=== PATIENT | female | born 1965 | race Caucasian/White ===

== ENCOUNTER 2016-11-10 11:22 | Inpatient (IN) | payer OTHER ==
[~2016-11-10] VITALS: Ht 165.1 cm; Wt 141.4 kg
[2016-11-10] MEDS ORDERED: CLON1TAB3 PO (11:49)
[2016-11-10] MEDS ORDERED: PRLSR20 PO (11:49)
[2016-11-10] MEDS ORDERED: LEVO175T3 PO (11:49)
[2016-11-10] MEDS ORDERED: CARB1CAP9 PO (11:49)
[2016-11-10] MEDS ORDERED: CALC1CHW PO (11:49)
[2016-11-10] MEDS ORDERED: MULTTAB58 PO (11:49)
[2016-11-10 12:16] LABS: BASO % 0.5 %; BASO ABS # 0.03 K/uL (0-0.2); COMPLETE YES; IG% 0.2 %; LYMPH % 18.8 %; LYMPH ABS # 1.24 K/uL (1.2-3.4); MEAN CELL VOLUME 88.5 fL (80-100); MEAN CORPUSCULAR HEMOGLOBIN 30.2 pg (25-34); MEAN CORPUSCULAR HGB CONC 34.1 g/dl (32-36); MONO % 5.2 %; NEUT % 72.3 %; PLATELET COUNT 205 K/uL (130-400); RED BLOOD COUNT 4.97 M/uL (4.2-5.4)
--- NOTE | 2016-11-10 12:19 | EMERGENCY ROOM VISIT NOTE ---
History Report prepared by Bert: Kathleen Coe Under the Supervision of: Dr. Nan Sheikh M.D. First contact with patient: 11:37 Chief Complaint: HEAD INJURY (MINOR) Stated Complaint: HEAD INJURY History of Present Illness The patient is a 51 year old female who presents to the Emergency Room with complaints of a head injury that occurred this morning. The patient was following up with Dr. Ji today for a routine visit. She was sitting in a chair and leaned over to tie her shoes when she fell to the side and hit her head on the ground. Per EMS, the patient was acting baseline prior to her appointment but started to act slightly unlike herself afterwards according to nursing staff at the office. Currently, the patient has a mild headache. The patient has a history of seizures and is on Carbatrol. She notes that she has been exercising for the past few months to lose weight. She has lost about 7 pounds in the past 2 months. She notes some bruising to her abdomen and back from the compression band she is using on her exercise bike. She notes that her blood pressure was running high today at 178/83. She denies any medication changes recently. Denies fevers or other complaints. Source of History: patient Onset: this morning Position: head Quality: other (head injury) Timing: other (episode) Associated Symptoms: + headache, No fevers Review of Systems See HPI for pertinent positives & negatives. A total of 10 systems reviewed and were otherwise negative. Past Medical & Surgical Medical Problems: (1) Post concussion syndrome (2) Seizures Family History No pertinent family history stated. Social History Smoking Status: Never Smoker Marital Status: single Occupation Status: student Current/Historical Medications Scheduled Calcium Carbonate-Vitamin D (Caltrate 600+D), 1 TAB PO BID Carbamazepine (Carbatrol Er), 300 MG PO 5XD Clonazepam (Klonopin), 1 MG PO HS Levothyroxine Sodium (Levothyroxine Sodium), 1 TAB PO DAILY Multiple Vitamin (Multivitamin), 1 TAB PO DAILY Omeprazole (Prilosec), 20 MG PO DAILY Allergies Coded Allergies: BEE STING (Verified Allergy, Unknown, per [employer], 11/10/16) Gabapentin (Unverified Allergy, Unknown, per [employer], 11/10/16) Oxycodone (Verified Allergy, Unknown, per [employer]scripts, 11/10/16) Penicillins (Verified Allergy, Unknown, Hives, 11/10/16) Topiramate (Verified Adverse Reaction, Intermediate, numbness in face, ) Furosemide (Unverified Adverse Reaction, Mild, DIZZINESS, 11/10/16) Physical Exam Vital Signs Date Time Temp Pulse Resp B/P Pulse Ox O2 Delivery O2 Flow Rate FiO2 11/10/16 17:12 96 15 11/10/16 17:07 86 21 98 11/10/16 17:02 91 19 98 11/10/16 16:57 86 14 96 11/10/16 16:52 79 13 95 11/10/16 16:47 81 16 98 11/10/16 16:42 84 22 98 11/10/16 16:37 83 16 98 11/10/16 16:32 85 18 96 11/10/16 16:27 85 14 97 11/10/16 16:22 91 15 98 11/10/16 15:52 83 15 97 11/10/16 15:22 78 15 99 11/10/16 15:14 82 20 160/70 98 Room Air 11/10/16 15:14 160/70 11/10/16 14:52 80 15 11/10/16 14:35 157/97 11/10/16 14:22 82 13 11/10/16 13:52 81 14 11/10/16 13:22 78 16 98 11/10/16 13:01 82 20 157/99 98 Room Air 11/10/16 13:01 157/99 11/10/16 12:52 85 16 95 11/10/16 12:22 81 24 98 11/10/16 12:21 81 18 165/76 100 Room Air 11/10/16 12:16 165/76 11/10/16 12:16 84 16 165/76 98 Room Air 11/10/16 11:53 144/89 11/10/16 11:30 36.7 95 20 187/112 99 Room Air 11/10/16 11:26 187/112 Physical Exam Vital signs reviewed. General: Generally well-appearing 51 year old female, in no significant distress. HEENT: No scleral icterus, PERRLA, neck supple. Atraumatic. Cardiovascular: Regular rate and rhythm, no extra sounds. Pulmonary: Clear to auscultation bilaterally, normal work of breathing. Abdomen: Obese, soft, nontender, nondistended, positive bowel sounds, 7 cm healing ecchymotic area to the upper abdomen. Musculoskeletal: Ecchymotic area to the lumbar back, no peripheral edema. Neurologic: Patient awake alert and oriented x 3, somewhat bizarre affect, neurologically intact, speech is somewhat disjointed but she articulates well and answers questions appropriately, full strength in all 4 extremities. Cranial nerves 2 through 12 grossly intact. Skin: Warm, dry, no rash Medical Decision & Procedures ER Provider Diagnostic Interpretation: Radiology results as stated below per my review and radiologist interpretation: HEAD CT NONCONTRAST CT DOSE: 614.27 mGy.cm HISTORY: Altered mental status. Head injury. TECHNIQUE: Multiaxial CT images of the head were performed without the use of intravenous contrast. Automated exposure control was utilized for this study. Comparison: None. Findings: The paranasal sinuses and mastoid air cells are clear. The calvarium and skull base are intact. The ventricles and sulci are within normal limits. There is no mass, hematoma, midline shift, or acute infarct. Mild left parietal scalp swelling. Impression: No acute intracranial abnormality. Mild left parietal scalp swelling Electronically signed by: Evan Stark M.D. 11/10/2016 12:20 PM Dictated Date/Time: 11/10/2016 12:15 PM Laboratory Results 11/10/16 12:00 Red Blood Count 4.97, Mean Corpuscular Volume 88.5, Mean Corpuscular Hemoglobin 30.2, Mean Corpuscular Hemoglobin Concent 34.1, Mean Platelet Volume 10.0, Neutrophils (%) (Auto) 72.3, Lymphocytes (%) (Auto) 18.8, Monocytes (%) (Auto) 5.2, Eosinophils (%) (Auto) 3.0, Basophils (%) (Auto) 0.5, Neutrophils # (Auto) 4.78, Lymphocytes # (Auto) 1.24, Monocytes # (Auto) 0.34, Eosinophils # (Auto) 0.20, Basophils # (Auto) 0.03 11/10/16 12:00 Test 11/10/16 12:00 11/10/16 12:08 11/10/16 13:05 White Blood Count 6.60 K/uL (4.8-10.8) Red Blood Count 4.97 M/uL (4.2-5.4) Hemoglobin 15.0 g/dL (12.0-16.0) Hematocrit 44.0 % (37-47) Mean Corpuscular Volume 88.5 fL (80-100) Mean Corpuscular Hemoglobin 30.2 pg (25-34) Mean Corpuscular Hemoglobin Concent 34.1 g/dl (32-36) Platelet Count 205 K/uL (130-400) Mean Platelet Volume 10.0 fL (7.4-10.4) Neutrophils (%) (Auto) 72.3 % Lymphocytes (%) (Auto) 18.8 % Monocytes (%) (Auto) 5.2 % Eosinophils (%) (Auto) 3.0 % Basophils (%) (Auto) 0.5 % Neutrophils # (Auto) 4.78 K/uL (1.4-6.5) Lymphocytes # (Auto) 1.24 K/uL (1.2-3.4) Monocytes # (Auto) 0.34 K/uL (0.11-0.59) Eosinophils # (Auto) 0.20 K/uL (0-0.5) Basophils # (Auto) 0.03 K/uL (0-0.2) RDW Standard Deviation 44.1 fL (36.4-46.3) RDW Coefficient of Variation 13.6 % (11.5-14.5) Immature Granulocyte % (Auto) 0.2 % Immature Granulocyte # (Auto) 0.01 K/uL (0.00-0.02) Est Creatinine Clear Calc Drug Dose 125.6 ml/min Estimated GFR () 103.6 Estimated GFR (Non- 89.4 BUN/Creatinine Ratio 18.6 (10-20) Calcium Level 8.9 mg/dl (8.5-10.1) Magnesium Level 2.0 mg/dl (1.8-2.4) Total Bilirubin 0.3 mg/dl (0.2-1) Direct Bilirubin 0.1 mg/dl (0-0.2) Aspartate Amino Transf (AST/SGOT) 16 U/L (15-37) Alanine Aminotransferase (ALT/SGPT) 33 U/L (12-78) Alkaline Phosphatase 90 U/L (45-117) Total Protein 8.2 gm/dl (6.4-8.2) Albumin 3.8 gm/dl (3.4-5.0) Carbamazepine (Tegretol) Level 9.4 mcg/ml (4-12) Bedside Hemoglobin 16.3 g/dl (12.0-16.0) Bedside Hematocrit 48 % (37-47) Bedside Sodium 142 mEq/L (135-144) Bedside Potassium 3.7 mEq/L (3.3-5.0) Bedside Chloride 105 mEq/L (101-112) Bedside Total CO2 21 mEq/l (24-31) Anion Gap 21.0 mmol/L (16-25) Bedside Blood Urea Nitrogen 15 mg/dl (7-18) Bedside Creatinine 0.6 mg/dl (0.6-1.3) Bedside Glucose (other) 124 mg/dl (70-99) Bedside Ionized Calcium (Joaquin) 1.16 mmol/l (1.12-1.32) Urine Color YELLOW Urine Appearance CLEAR (CLEAR) Urine pH 6.0 (4.5-7.5) Urine Specific [place] 1.010 (1.000-1.030) Urine Protein NEG (NEG) Urine Glucose (UA) NEG (NEG) Urine Ketones NEG (NEG) Urine Occult Blood NEG (NEG) Urine Nitrite NEG (NEG) Urine Bilirubin NEG (NEG) Urine Urobilinogen NEG (NEG) Urine Leukocyte Esterase TRACE (NEG) Urine WBC (Auto) 1-5 /hpf (0-5) Urine RBC (Auto) 0-4 /hpf (0-4) Urine Hyaline Casts (Auto) 1-5 /lpf (0-5) Urine Epithelial Cells (Auto) 10-20 /lpf (0-5) Urine Bacteria (Auto) NEG (NEG) Laboratory results per my review. ECG Indication: altered mental status Rate (beats per minute): 88 Rhythm: normal sinus Findings: prolonged QT, no ectopy ED Course 1145: The patient was evaluated in room B5. A complete history and physical examination was performed. 1536: Upon reevaluation, the patient is resting comfortably. I discussed laboratory and radiographic results with the patient. She verbalized agreement of the treatment plan. 1539: I discussed the case with Dr. Ji - Bariatric Medicine. She said that the patient has a bizarre affect at baseline. She said that the patient bent over while she was at the office and dramatically fell, stood up, took a few large steps, fell again, and hit her head. Afterwards, she was out of it. 1631: I discussed the case with Dr. Jassi TRACY Hospitalist. The patient will be evaluated for further management. Medical Decision Differential: Intracranial hemorrhage, intracranial mass, migraine headache, tension headache , sinusitis, meningitis This patient was evaluated and appeared to be in no significant distress. Physical examination reveals is generally well-appearing obese female. She has no focal neurologic deficit although has some difficulty recalling the events in the physician's office prior to arrival. She has some irregularity in the speech patterns. I did have a conversation with Dr. Ji who was in the clinic at the time of the patient's accident. She states the patient had a change in mental status right away. She had been behaving normally prior to the incident. The patient is anxious to be discharged however I do not feel is in her best interest as she lives at home alone. CT scan of the head was performed and is negative. The patient will be evaluated by the hospitalist service for further management and neurologic checks. Patient is aware of the plan and agrees. Consults Time Called: 1530 Consulting Physician: Dr. Ji - Bariatric Medicine Returned Call: 1539 I discussed the case with her. She said that the patient has a bizarre affect at baseline. She said that the patient bent over while she was at the office and dramatically fell, stood up, took a few large steps, fell again, and hit her head. Afterwards, she was out of it. Additional Consults: Time Called: 1600 Consulted Physician: Dr. Jassi TRACY Hospitalist Returned Call: 1631 Additional Comments: I discussed the case with him. The patient will be evaluated for further management. Impression Primary Impression: Closed head injury Additional Impression: Altered level of consciousness Scribe Attestation The scribe's documentation has been prepared under my direction and personally reviewed by me in its entirety. I confirm that the note above accurately reflects all work, treatment, procedures, and medical decision making performed by me. Departure Information Dispostion Being Evaluated By Hospitalist Referrals No Doctor, Assigned (PCP) Patient Instructions My [facility] Problem Qualifiers Primary Impression: Closed head injury Encounter type: initial encounter Qualified Codes: S09.90XA - Unspecified injury of head, initial encounter
[2016-11-10 12:21] LABS: ISTAT CREATININE 0.6 mg/dl (0.6-1.3); ISTAT HEMOGLOBIN 16.3 g/dl (12.0-16.0); ISTAT IONIZED CALCIUM 1.16 mmol/l (1.12-1.32)
[2016-11-10 12:34] LABS: BUN/CREATININE RATIO 18.6 (10-20); CALCIUM 8.9 mg/dl (8.5-10.1); CREATININE 0.77 mg/dl (0.60-1.20); POTASSIUM 3.7 mmol/L (3.5-5.1)
[2016-11-10 13:24] LABS: URINE APPEARANCE CLEAR (CLEAR); URINE BILIRUBIN NEG (NEG); URINE COLOR YELLOW; URINE NITRITE NEG (NEG); UROBILINOGEN NEG (NEG); ZZUR CULT IF INDIC CLEAN CATCH NO
[2016-11-10 13:25] LABS: MANUAL MICROSCOPIC REQUIRED? NO; REVIEW REQ? NO
[2016-11-10] MEDS ORDERED: ACETAMINOPHEN 325 MG TAB PO PRN (17:15)
[2016-11-10] MEDS ORDERED: ONDANSETRON INJ 2 MG/ML 2 ML VIAL IV PRN (17:15)
[2016-11-10] MEDS ORDERED: CARBAMAZEPINE 300 MG PO SCH (17:30)
[2016-11-10 18:38] VITALS: BP 177/116; PULSE 95; TEMP 36.3; O2SAT 97; Ht 165.1 cm; Wt 141.4 kg
--- NOTE | 2016-11-10 18:45 | History and Physical ---
History & Physical Date & Time of Service: Nov 10, 2016 at 18:36 Chief Complaint: Post Concussion Syndrome Primary Care Physician: No Doctor, Assigned History of Present Illness Source: patient Pt is a 51 year old female with hx of seizure disorder who presents to the ER with complaints of a head injury that occurred this morning. Pt was seeing Dr Ji for a routine visit when she leaned over to tie her shoes and sustained a fall. No LOC noted but according to staff, pt was not acting herself. Pt denies any head pain, chest pain, or shortness of breath prior to incident. The patient has a history of seizures and is on Carbatrol. She notes that she has been exercising for the past few months to lose weight. She has lost about 7 pounds in the past 2 months. She notes some bruising to her abdomen and back from the compression band she is using on her exercise bike. Upon evaluation pt denies and headaches, blurred vision, chest pain, shortness of breath, palpitations or any seizure activity. Past Medical/Surgical History Medical Problems: (1) Seizures Status: Chronic Social History Smoking Status: Never Smoker Smokeless Tobacco Use: No Marital Status: single Occupational Status: student Allergies Coded Allergies: BEE STING (Verified Allergy, Unknown, per [employer]scripts, 11/10/16) Gabapentin (Unverified Allergy, Unknown, per [employer]scripts, 11/10/16) Oxycodone (Verified Allergy, Unknown, per [employer]scripts, 11/10/16) Penicillins (Verified Allergy, Unknown, Hives, 11/10/16) Topiramate (Verified Adverse Reaction, Intermediate, numbness in face, ) Furosemide (Unverified Adverse Reaction, Mild, DIZZINESS, 11/10/16) Home Medications Scheduled Calcium Carbonate-Vitamin D (Caltrate 600+D), 1 TAB PO BID Carbamazepine (Carbatrol Er), 300 MG PO 5XD Clonazepam (Klonopin), 1 MG PO HS Levothyroxine Sodium (Levothyroxine Sodium), 1 TAB PO DAILY Multiple Vitamin (Multivitamin), 1 TAB PO DAILY Omeprazole (Prilosec), 20 MG PO DAILY Review of Systems Constitutional: No chills, No fever Respiratory: No cough, No sputum Cardiovascular: No chest pain, No orthopnea Abdomen: No constipation, No diarrhea, No nausea, No pain, No vomiting Musculoskeletal: No joint pain, No muscle pain Genitourinary - Female: No dysuria, No urinary frequency, No urinary urgency Neurologic: No memory loss, No paralysis, No weakness Physical Exam Vital Signs Date Time Temp Pulse Resp B/P Pulse Ox O2 Delivery O2 Flow Rate FiO2 11/10/16 18:05 36.7 95 14 160/70 98 11/10/16 18:02 14 11/10/16 17:57 95 17 11/10/16 17:52 96 18 11/10/16 17:47 105 20 11/10/16 17:42 104 17 11/10/16 17:37 109 20 11/10/16 17:32 106 24 11/10/16 17:27 108 21 11/10/16 17:22 105 17 11/10/16 17:17 98 19 11/10/16 17:12 96 15 11/10/16 17:07 86 21 98 11/10/16 17:02 91 19 98 11/10/16 16:57 86 14 96 11/10/16 16:52 79 13 95 11/10/16 16:47 81 16 98 11/10/16 16:42 84 22 98 11/10/16 16:37 83 16 98 11/10/16 16:32 85 18 96 11/10/16 16:27 85 14 97 11/10/16 16:22 91 15 98 11/10/16 15:52 83 15 97 11/10/16 15:22 78 15 99 11/10/16 15:14 82 20 160/70 98 Room Air 11/10/16 15:14 160/70 11/10/16 14:52 80 15 11/10/16 14:35 157/97 11/10/16 14:22 82 13 11/10/16 13:52 81 14 11/10/16 13:22 78 16 98 11/10/16 13:01 82 20 157/99 98 Room Air 11/10/16 13:01 157/99 11/10/16 12:52 85 16 95 11/10/16 12:22 81 24 98 11/10/16 12:21 81 18 165/76 100 Room Air 11/10/16 12:16 165/76 11/10/16 12:16 84 16 165/76 98 Room Air 3/23/17 11:53 144/89 11/10/16 11:30 36.7 95 20 187/112 99 Room Air 11/10/16 11:26 187/112 General Appearance: WD/WN, no apparent distress Neck: supple, no adenopathy Respiratory/Chest: lungs clear, normal breath sounds Cardiovascular: no edema, no gallop Abdomen/GI: non tender, soft Neurologic/Psych: alert, normal mood/affect, oriented x 3 Diagnostics Laboratory Results Results Past 24 Hours Test 11/10/16 12:00 11/10/16 12:08 11/10/16 13:05 Range/Units White Blood Count 6.60 4.8-10.8 K/uL Red Blood Count 4.97 4.2-5.4 M/uL Hemoglobin 15.0 12.0-16.0 g/dL Hematocrit 44.0 37-47 % Mean Corpuscular Volume 88.5 80-100 fL Mean Corpuscular Hemoglobin 30.2 25-34 pg Mean Corpuscular Hemoglobin Concent 34.1 32-36 g/dl Platelet Count 205 130-400 K/uL Mean Platelet Volume 10.0 7.4-10.4 fL Neutrophils (%) (Auto) 72.3 % Lymphocytes (%) (Auto) 18.8 % Monocytes (%) (Auto) 5.2 % Eosinophils (%) (Auto) 3.0 % Basophils (%) (Auto) 0.5 % Neutrophils # (Auto) 4.78 1.4-6.5 K/uL Lymphocytes # (Auto) 1.24 1.2-3.4 K/uL Monocytes # (Auto) 0.34 0.11-0.59 K/uL Eosinophils # (Auto) 0.20 0-0.5 K/uL Basophils # (Auto) 0.03 0-0.2 K/uL RDW Standard Deviation 44.1 36.4-46.3 fL RDW Coefficient of Variation 13.6 11.5-14.5 % Immature Granulocyte % (Auto) 0.2 % Immature Granulocyte # (Auto) 0.01 0.00-0.02 K/uL Sodium Level 141 136-145 mmol/L Potassium Level 3.7 3.5-5.1 mmol/L Chloride Level 108 98-107 mmol/L Carbon Dioxide Level 23 21-32 mmol/L Anion Gap 10.0 21.0 16-25 mmol/L Blood Urea Nitrogen 14 7-18 mg/dl Creatinine 0.77 0.60-1.20 mg/dl Est Creatinine Clear Calc Drug Dose 125.6 ml/min Estimated GFR () 103.6 Estimated GFR (Non- 89.4 BUN/Creatinine Ratio 18.6 10-20 Random Glucose 117 70-99 mg/dl Calcium Level 8.9 8.5-10.1 mg/dl Magnesium Level 2.0 1.8-2.4 mg/dl Total Bilirubin 0.3 0.2-1 mg/dl Direct Bilirubin 0.1 0-0.2 mg/dl Aspartate Amino Transf (AST/SGOT) 16 15-37 U/L Alanine Aminotransferase (ALT/SGPT) 33 12-78 U/L Alkaline Phosphatase 90 45-117 U/L Total Protein 8.2 6.4-8.2 gm/dl Albumin 3.8 3.4-5.0 gm/dl Carbamazepine (Tegretol) Level 9.4 4-12 mcg/ml Bedside Hemoglobin 16.3 12.0-16.0 g/dl Bedside Hematocrit 48 37-47 % Bedside Sodium 142 135-144 mEq/L Bedside Potassium 3.7 3.3-5.0 mEq/L Bedside Chloride 105 101-112 mEq/L Bedside Total CO2 21 24-31 mEq/l Bedside Blood Urea Nitrogen 15 7-18 mg/dl Bedside Creatinine 0.6 0.6-1.3 mg/dl Bedside Glucose (other) 124 70-99 mg/dl Bedside Ionized Calcium (Joaquin) 1.16 1.12-1.32 mmol/l Urine Color YELLOW Urine Appearance CLEAR CLEAR Urine pH 6.0 4.5-7.5 Urine Specific [place] 1.010 1.000-1.030 Urine Protein NEG NEG Urine Glucose (UA) NEG NEG Urine Ketones NEG NEG Urine Occult Blood NEG NEG Urine Nitrite NEG NEG Urine Bilirubin NEG NEG Urine Urobilinogen NEG NEG Urine Leukocyte Esterase TRACE NEG Urine WBC (Auto) 1-5 0-5 /hpf Urine RBC (Auto) 0-4 0-4 /hpf Urine Hyaline Casts (Auto) 1-5 0-5 /lpf Urine Epithelial Cells (Auto) 10-20 0-5 /lpf Urine Bacteria (Auto) NEG NEG Impression Assessment and Plan Pt is a 51 yo female with hx of seizure disorder who presents with fall and postconcussive syndrome afterwards Post concussive syndrome - Will place on observation, pt already back to baseline. Denies any headaches, blurred vision. Will likely DC in next 24 hrs. Obtain PT/OT Seizure disorder - Cont carbamazepine. Level WNL Hypothyroidism - Cont synthroid Anxiety - Cont klonopin Pt is FULL CODE VTE Prophylaxis VTE Risk Assessment Done? Y/N: Yes Risk Level: Moderate
[2016-11-10 19:24] VITALS: BP_SYST 195; BP_DIAS 89; BP_DIAS 98; PULSE 100; TEMP 37; O2SAT 99
[2016-11-10] MEDS ORDERED: IV FLUIDS COMPLETED PRN (19:30)
[2016-11-10] MEDS: HydrALAZINE HCL 20 MG/ML VIAL IV. PRN ×2 (19:37→23:35)
[2016-11-10 20:00] VITALS: O2SAT 99
[2016-11-10] MEDS: CLONAZEPAM 1 MG TAB PO SCH (20:19)
[2016-11-10] MEDS: CARBATROL PO SCH (21:05)
[2016-11-10 23:29] VITALS: BP 156/100; PULSE 91; TEMP 37; O2SAT 99
[2016-11-10 23:33] VITALS: BP 171/90
[2016-11-10 23:59] VITALS: O2SAT 99
[2016-11-11] VITALS (7 sets, daily range): BP systolic 130–158; BP diastolic 80–96; PULSE 83–99; TEMP 36.6–37.4; O2SAT 95–99
[2016-11-11] MEDS: CARBATROL PO SCH ×5 (05:39→23:15)
[2016-11-11] MEDS: LEVOTHYROXINE 175 MCG TAB PO SCH (05:39)
[2016-11-11] MEDS: MULTIVITAMIN TAB PO SCH (10:56)
[2016-11-11] MEDS: PANTOprazole SOD 40 MG TAB PO SCH (10:56)
--- NOTE | 2016-11-11 18:19 | Progress Note ---
Subjective Date of Service: Nov 11, 2016. Subjective Pt evaluation today including: conversation w/ patient, physical exam, chart review, lab review, review of studies (CT head), review of inpatient medication list Pain: denies PO Intake: normal Voiding: no voiding problems telemetry stable overnight patient adamant about discharging home today, stating she has cats and she needs to tend to them she personally feels she is back to neuropsychiatric baseline however, multiple nurses, PT, etc report mild confusion during the encounter she initially told me that it was she did, however, knew it was October 2016 she could not recall the events of yesterday she reports having taken aspirin yesterday morning when I asked her why she took aspirin she could not remember she then stated "for my back" she had extreme difficulty in telling me the months of the year backwards it took several trials and several minutes to accomplish such she denies any recent seizure; last seizure was May 2016 she states that no one at the physician's office yesterday witnessed seizure activity Problem List Medical Problems: (1) Altered level of consciousness Status: Acute (2) Closed head injury Status: Acute Review of Systems Constitutional: No fever Respiratory: No cough, No dyspnea on exertion, No shortness of breath Cardiac: No chest pain Abdomen: No pain Neurologic: + balance problems (uses cane), + memory loss, No numbness/tingling , No vertigo, No weakness Objective Vital Signs Date Time Temp Pulse Resp B/P Pulse Ox O2 Delivery O2 Flow Rate FiO2 11/11/16 16:00 Room Air 11/11/16 15:37 36.6 92 22 130/96 97 Room Air 11/11/16 12:00 Room Air 11/11/16 11:29 36.8 92 16 152/90 97 Room Air 11/11/16 08:00 Room Air 11/11/16 08:00 Room Air 11/11/16 07:30 36.8 94 18 158/85 96 Room Air 11/11/16 04:24 36.8 99 17 156/80 95 Room Air 11/11/16 04:00 99 Room Air 11/10/16 23:59 99 Room Air 11/10/16 23:33 171/90 11/10/16 23:29 37.0 91 22 156/100 99 Room Air 11/10/16 20:00 99 Room Air 11/10/16 19:24 37.0 100 16 195/89 99 Room Air 195/98 11/10/16 18:38 36.3 95 20 177/116 97 Room Air Physical Exam General Appearance: no apparent distress, + obese ENT: pharynx normal Neck: no JVD Respiratory/Chest: lungs clear, no respiratory distress, no accessory muscle use Cardiovascular: regular rate, rhythm, no gallop, no murmur Abdomen: normal bowel sounds, non tender, soft, no organomegaly Extremities: no pedal edema Neurologic/Psychiatric: alert, + disoriented (knew all orientation questions except for day of the week), + pertinent finding (finger/nose/finger maneuever without ataxia; gait assessed - fair, uses cane, no ataxia; strength 5/5 x 4 extremities; DTRs 2+ b/l upper and lower extremities. Speech - clear, but at times nonfluent. ) Laboratory Results Last 24 Hours Test 11/10/16 19:15 11/11/16 12:16 Thyroid Stimulating Hormone (TSH) 1.060 uIu/ml Hepatitis C Antibody Screen NEG Vitamin B12 Level 763 pg/mL Assessment and Plan 51yo female with: 1. fall at local physician's office yesterday, s/p head injury - she still has some element of mild confusion/cognitive impairment today. this may simply represent a post-concussive state. she is currently working on a Master's degree and clearly she is not at her neurocognitive baseline. I am concerned that something provoked yesterday's event - stroke, etc. Will attempt to get MRI brain today. Leave on telemetry. Check b12 level to be complete. I don't see any evidence of infectious process. Regardless of the etiology I do not feel she is safe to d/c this evening as she lives alone in [place] and has no family locally. Also, she has few friends to assist her if needed. Will involve social work to assist with her disposition. 2. seizure disorder - tegretol level was therapeutic. She has had no apparent seizure in the last 24 hours. 3. hypothyroidism - TSH is compensated. Cont synthroid same dose. 4. DVT proph - lovenox. if mentation is at or near baseline in AM then d/c home at that time with close outpatient follow-up. Continued [facility] stay due to: other (ongoing cognitive issues)
--- NOTE | 2016-11-11 18:20 | Progress Note ---
Progress Note Date of Service Nov 11, 2016. Progress Note 1820 Patient unable to complete MRI brain due to claustrophobia. We offered to repeat the MRI with pre-medication but patient refused. Consider repeat head CT in am if still with confusion, cognitive issues, etc. Malick JUNIOR MD
[2016-11-11] MEDS ORDERED: ENOXAPARIN 40 MG/0.4 ML SYR SQ ONE (18:30)
[2016-11-11 19:45] LABS: PROTHROMBIN TIME (PATIENT) 11.2 SECONDS (9.0-12.0)
[2016-11-11] MEDS: CLONAZEPAM 1 MG TAB PO SCH (20:43)
[2016-11-12 04:00] VITALS: BP 141/92; PULSE 84; TEMP 36.6; O2SAT 96
[2016-11-12] MEDS: LEVOTHYROXINE 175 MCG TAB PO SCH (06:35)
[2016-11-12] MEDS: CARBATROL PO SCH ×5 (06:35→23:41)
[2016-11-12] MEDS: MULTIVITAMIN TAB PO SCH (08:11)
[2016-11-12] MEDS: ENOXAPARIN 40 MG/0.4 ML SYR SQ SCH (08:11)
[2016-11-12] MEDS: PANTOprazole SOD 40 MG TAB PO SCH (08:11)
[2016-11-12 08:22] VITALS: BP 123/78; PULSE 71; TEMP 36.9; O2SAT 97
[2016-11-12 11:47] VITALS: BP 172/65; PULSE 80; TEMP 36.8; O2SAT 98
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
[2016-11-12 15:28] VITALS: BP 150/93; PULSE 105; TEMP 36.9; O2SAT 97
--- NOTE | 2016-11-12 18:28 | EEG Procedure Note ---
EEG Procedure Note Date of Service Nov 12, 2016. Start / End Times Start Time: 1:35 PM End Time: 1:55 PM Referring Physician Joaquin History Seizure disorder, encephalopathy Home Medication List Scheduled Calcium Carbonate-Vitamin D (Caltrate 600+D), 1 TAB PO BID Carbamazepine (Carbatrol Er), 300 MG PO 5XD Clonazepam (Klonopin), 1 MG PO HS Levothyroxine Sodium (Levothyroxine Sodium), 1 TAB PO DAILY Multiple Vitamin (Multivitamin), 1 TAB PO DAILY Omeprazole (Prilosec), 20 MG PO DAILY Inpatient Medication List Current Inpatient Medications Medications (Trade) Dose Ordered Sig/Adrienne Route Start Time Stop Time Status Last Admin Dose Admin Acetaminophen (Tylenol Tab) 650 mg Q4H PRN PO 11/10/16 17:15 12/10/16 17:14 Ondansetron HCl (Zofran Inj) 4 mg Q6H PRN IV 11/10/16 17:15 12/10/16 17:14 Clonazepam (Klonopin Tab) 1 mg HS PO 11/10/16 21:00 12/10/16 20:59 11/11/16 20:43 1 MG Levothyroxine Sodium (Synthroid Tab) 175 mcg DAILYBB PO 11/11/16 06:00 12/11/16 05:59 11/12/16 06:35 175 MCG Multivitamins (Multivitamin Tab) 1 tab DAILY PO 11/11/16 09:00 12/11/16 08:59 11/12/16 08:11 1 TAB Pantoprazole Sodium (Protonix Tab) 40 mg QAM PO 11/11/16 09:00 12/11/16 08:59 11/12/16 08:11 40 MG Hydralazine HCl (HydrALAZINE INJ) 10 mg Q4 PRN IV. 11/10/16 18:45 12/10/16 18:44 11/10/16 23:35 10 MG Miscellaneous (Iv Fluids Completed) 1 ea PRN PRN N/A 11/10/16 19:30 11/10/17 19:29 Carbamazepine (Carbatrol Extended-Release) 300 mg 5XDQ4H PO 11/10/16 23:00 12/10/16 22:59 11/12/16 14:50 300 MG Enoxaparin Sodium (Lovenox Inj) 40 mg QAM SQ 11/12/16 09:00 12/12/16 08:59 11/12/16 08:11 40 MG Description This is a 21 electrode EEG with a single channel dedicated to limited EKG. The electrodes were placed in accordance with the International 10-20 system. There is a posterior dominant rhythm of 9-10 Hz which is symmetrically distributed and attenuates with eye opening there is a normal anterior to posterior organization. Photic stimulation is unremarkable. Hyperventilation is not performed. There is an intermittent, symmetrically distributed, frontal spike wave abnormality of moderate amplitude with a frequency of about 3-1/2 Hz. Interpretation This EEG reveals a symmetrical, frontal, spike wave abnormality that is potentially consistent with an underlying primary generalized seizure disorder. Clinical Correlation As above, this abnormal EEG is consistent with an underlying primary generalized epilepsy which is consistent with this patient's stated history of seizure disorder. Focal onset or localization-related epilepsy is not completely excluded, however. The observed abnormalities occur on a background of an otherwise normal alpha rhythm. The findings are not suggestive of subclinical status epilepticus.
[2016-11-12 19:43] VITALS: BP 175/76; PULSE 90; TEMP 37.1; O2SAT 97
[2016-11-12] MEDS: CLONAZEPAM 1 MG TAB PO SCH (20:01)
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
[2016-11-13] VITALS: BP 153/77; PULSE 92; TEMP 36.6; O2SAT 97
[2016-11-13 04:00] VITALS: BP 132/69; PULSE 83; TEMP 36.8; O2SAT 95
[2016-11-13] MEDS: LEVOTHYROXINE 175 MCG TAB PO SCH (06:16)
[2016-11-13] MEDS: CARBATROL PO SCH ×5 (06:16→23:17)
[2016-11-13 07:38] VITALS: BP 139/69; PULSE 78; TEMP 36.6; O2SAT 96
[2016-11-13] MEDS: MULTIVITAMIN TAB PO SCH (09:34)
[2016-11-13] MEDS: ENOXAPARIN 40 MG/0.4 ML SYR SQ SCH (09:34)
[2016-11-13] MEDS: PANTOprazole SOD 40 MG TAB PO SCH (09:34)
--- NOTE | 2016-11-13 11:02 | Neurology Progress Notes ---
Neurology Progress Note Date of Service Nov 13, 2016. Subjective Follow-up for confusion following head injury The patient continues to complain of mild difficulty with her memory and concentration ever since her fall and associated concussion which occurred 3 days ago. She does believe, however, that her symptoms have modestly improved compared with yesterday. She denies headache. She denies neck pain. She does complain of feeling dehydrated and attributes some of her symptoms to this issue. She has been eating and drinking adequately and does not complain of nausea or vomiting. I interpreted her bedside electroencephalogram was completed yesterday. There is evidence of an intermittent, symmetrical, frontal spike wave abnormality consistent with an underlying primary generalized epilepsy. The study did not suggest status epilepticus. Upon further review of outpatient records, it appears as if she had a similar finding on EEG is completed in the past. Also of note, she has not tolerated trials of other anticonvulsants including Depakote, phenytoin, and possibly Lamictal. He does not really have a good recollection of the Lamictal trial, however. She has been taking carbamazepine for many years and appears to have a therapeutic carbamazepine level, 9.4, that was drawn 3 days ago. She has a normal sodium level and normal white blood cell count as well. Objective Date Time Temp Pulse Resp B/P Pulse Ox O2 Delivery O2 Flow Rate FiO2 11/13/16 08:00 Room Air 11/13/16 07:38 36.6 78 18 139/69 96 Room Air 11/13/16 04:00 36.8 83 22 132/69 95 Room Air 11/13/16 04:00 Room Air 11/13/16 00:02 Room Air 11/13/16 00:00 36.6 92 22 153/77 97 Room Air 11/12/16 20:00 Room Air 11/12/16 19:43 37.1 90 18 175/76 97 Room Air 11/12/16 16:00 Room Air 11/12/16 15:28 36.9 105 18 150/93 97 Room Air 11/12/16 12:00 Room Air 11/12/16 11:47 36.8 80 18 172/65 98 Room Air Exam: The patient is lying comfortably in bed. She is in no acute distress, pleasant, cooperative, nonagitated. She is alert and oriented to person place and time and exhibits normal attention and concentration although had mild difficulty with serial sevens. She indicates that she was never really very good at math, however. She has mild difficulty with delayed recall, 2 out of 3 objects. She exhibits a normal spontaneous speech pattern and a normal vocabulary. She seems less irritable compared with yesterday. Her speech seems a bit less pressured as well. Visual viera full to confrontation. Visual acuity normal. Pupils equal round reactive to light and accommodation. Eye movements normal. No nystagmus. There is no facial droop. Palate elevates to midline. Tongue protrudes to midline. Shoulder shrug and hearing intact bilaterally. There is no pronator drift with outstretched arms. No tremor or dysmetria with finger to nose or heel to [place]. No ataxia or myoclonic type movements. Current Inpatient Medications Medications (Trade) Dose Ordered Sig/Adrienne Route Start Time Stop Time Status Last Admin Dose Admin Acetaminophen (Tylenol Tab) 650 mg Q4H PRN PO 11/10/16 17:15 12/10/16 17:14 Ondansetron HCl (Zofran Inj) 4 mg Q6H PRN IV 11/10/16 17:15 12/10/16 17:14 Clonazepam (Klonopin Tab) 1 mg HS PO 11/10/16 21:00 12/10/16 20:59 11/12/16 20:01 1 MG Levothyroxine Sodium (Synthroid Tab) 175 mcg DAILYBB PO 11/11/16 06:00 12/11/16 05:59 11/13/16 06:16 175 MCG Multivitamins (Multivitamin Tab) 1 tab DAILY PO 11/11/16 09:00 12/11/16 08:59 11/13/16 09:34 1 TAB Pantoprazole Sodium (Protonix Tab) 40 mg QAM PO 11/11/16 09:00 12/11/16 08:59 11/13/16 09:34 40 MG Hydralazine HCl (HydrALAZINE INJ) 10 mg Q4 PRN IV. 11/10/16 18:45 12/10/16 18:44 11/10/16 23:35 10 MG Miscellaneous (Iv Fluids Completed) 1 ea PRN PRN N/A 11/10/16 19:30 11/10/17 19:29 Carbamazepine (Carbatrol Extended-Release) 300 mg 5XDQ4H PO 11/10/16 23:00 12/10/16 22:59 11/13/16 06:16 300 MG Enoxaparin Sodium (Lovenox Inj) 40 mg QAM SQ 11/12/16 09:00 12/12/16 08:59 11/13/16 09:34 40 MG Impression Postconcussive cognitive dysfunction which continues to improve. I am unable to completely exclude a prolonged postictal state as another explanation for her cognitive dysfunction. However, obvious convulsive activity was not observed the time of her head injury. 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 Intolerances to trials of several other anticonvulsants in the past are noted. Carbamazepine seems to be well tolerated and is probably effective for her. Plan As this patient continues to improve, I would not make any changes in her anticonvulsant regimen or treatment at this time. If she were to have further episodes that could be potentially consistent with breakthrough seizures I think it would be reasonable to consider adding an adjunctive anticonvulsant to her regimen or possibly switching from carbamazepine to an alternative medication. This patient should continue to follow with Dr. Zapata as she has been seeing him for many years. I have no further recommendations at this time.
[2016-11-13 11:30] VITALS: BP 173/87; PULSE 75; O2SAT 96
--- NOTE | 2016-11-13 14:33 | Progress Note ---
Subjective Date of Service: Nov 13, 2016. Subjective Pt evaluation today including: conversation w/ patient, physical exam, chart review, lab review, review of studies, review of inpatient medication list Pain: No pain reported Voiding: no voiding problems, no incontinence pt is seen and examined , denies cp, sob, dizziness and Loc. No seizure reported by pt and no acute event overnight. Problem List Medical Problems: (1) Altered level of consciousness Status: Acute (2) Closed head injury Status: Acute Review of Systems All Other Systems: Reviewed and Negative Objective Vital Signs Date Time Temp Pulse Resp B/P Pulse Ox O2 Delivery O2 Flow Rate FiO2 11/13/16 11:30 75 20 173/87 96 Room Air 11/13/16 08:00 Room Air 11/13/16 07:38 36.6 78 18 139/69 96 Room Air 11/13/16 04:00 36.8 83 22 132/69 95 Room Air 11/13/16 04:00 Room Air 11/13/16 00:02 Room Air 11/13/16 00:00 36.6 92 22 153/77 97 Room Air 11/12/16 20:00 Room Air 11/12/16 19:43 37.1 90 18 175/76 97 Room Air 11/12/16 16:00 Room Air 11/12/16 15:28 36.9 105 18 150/93 97 Room Air Physical Exam General Appearance: WD/WN, no apparent distress Neck: supple, no adenopathy, no JVD Respiratory/Chest: chest non-tender, no respiratory distress, no accessory muscle use, + wheezing ( improved) Cardiovascular: regular rate, rhythm, no edema, no JVD, no murmur Abdomen: normal bowel sounds, non tender, soft, no organomegaly Extremities: normal range of motion, normal inspection 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 Fall at local physician's office yesterday, s/p head injury - may may post concussion some cognitive impairment. - Mild cognitive impairment today. - May simply represent a post-concussive state. Neurology on case. - Unable to do MRI secondary to claustrophobia .- Pt is AAox3, cognition improved - EEG is unremarkable, will d/c tomorrow as per neurology recommendation. 2. Seizure disorder - Tegretol level was therapeutic. - no apparent seizure in the last 48 hours. 3. Hypothyroidism - Cont Synthroid same dose. 4. DVT proph - lovenox. Continued [facility] stay due to: other (ongoing cognitive issues) Discharge planning: home
[2016-11-13 15:08] VITALS: BP 144/84; PULSE 90; TEMP 36.7; O2SAT 99
[2016-11-13] MEDS: CLONAZEPAM 1 MG TAB PO SCH (21:00)
[2016-11-13 23:57] VITALS: BP 138/84; PULSE 83; TEMP 36.6; O2SAT 95
[2016-11-14] VITALS: O2SAT 95
[2016-11-14] MEDS: LEVOTHYROXINE 175 MCG TAB PO SCH (06:31)
[2016-11-14] MEDS: CARBATROL PO SCH ×2 (06:32→11:03)
[2016-11-14 07:00] LABS: HEMATOCRIT 41.5 % (37-47); MEAN CELL VOLUME 90.2 fL (80-100); MEAN CORPUSCULAR HGB CONC 33.3 g/dl (32-36); MEAN PLATELET VOLUME 9.9 fL (7.4-10.4); PLATELET COUNT 189 K/uL (130-400); WHITE BLOOD COUNT 7.42 K/uL (4.8-10.8)
[2016-11-14 07:14] VITALS: BP 135/81; PULSE 74; TEMP 36.4; O2SAT 96
[2016-11-14 07:43] LABS: CREATININE 0.67 mg/dl (0.60-1.20)
--- NOTE | 2016-11-14 07:57 | Neurology Progress Notes ---
Neurology Progress Note Date of Service Nov 14, 2016. Subjective Patient feels she is back to baseline today. She has no headache and feels she is thinking more or less normally. She is unsure why she hit her head but was leaning over to do something with her shoes and ended up falling over and hitting her head on the floor 11-10-16. She is not dizzy or lightheaded and has no speech problems. She has no new weakness or numbness in the limbs. Nursing reports no seizure activity since admission and no issues overnight last night. Objective Date Time Temp Pulse Resp B/P Pulse Ox O2 Delivery O2 Flow Rate FiO2 11/14/16 07:14 36.4 74 20 135/81 96 Room Air 11/14/16 00:00 95 Room Air 11/13/16 23:57 36.6 83 20 138/84 95 Room Air 11/13/16 20:00 Room Air 11/13/16 16:00 Room Air 11/13/16 15:08 36.7 90 20 144/84 99 Room Air 11/13/16 11:30 75 20 173/87 96 Room Air 11/13/16 08:00 Room Air Last 24 Hours Test 11/14/16 06:46 White Blood Count 7.42 K/uL Red Blood Count 4.60 M/uL Hemoglobin 13.8 g/dL Hematocrit 41.5 % Mean Corpuscular Volume 90.2 fL Mean Corpuscular Hemoglobin 30.0 pg Mean Corpuscular Hemoglobin Concent 33.3 g/dl RDW Standard Deviation 46.0 fL RDW Coefficient of Variation 14.0 % Platelet Count 189 K/uL Mean Platelet Volume 9.9 fL Creatinine 0.67 mg/dl Est Creatinine Clear Calc Drug Dose 142.3 ml/min Estimated GFR () 118.0 Estimated GFR (Non- 101.8 Exam: Patient is awake and alert. Her speech is without aphasia or dysarthria. She can repeat test phrases well. She is oriented to time place and person. She can do simple calculations and knows left from right. Extraocular eye muscles are intact without nystagmus. There is no facial droop. Tongue is midline. With outstretched arms there is no drift. There is no resting, postural, or action tremors bilaterally. Strength is 5/5 diffusely in all limbs. Gait and stance are normal Current Inpatient Medications Medications (Trade) Dose Ordered Sig/Adrienne Route Start Time Stop Time Status Last Admin Dose Admin Acetaminophen (Tylenol Tab) 650 mg Q4H PRN PO 11/10/16 17:15 12/10/16 17:14 Ondansetron HCl (Zofran Inj) 4 mg Q6H PRN IV 11/10/16 17:15 12/10/16 17:14 Clonazepam (Klonopin Tab) 1 mg HS PO 11/10/16 21:00 12/10/16 20:59 11/13/16 21:00 1 MG Levothyroxine Sodium (Synthroid Tab) 175 mcg DAILYBB PO 11/11/16 06:00 12/11/16 05:59 11/14/16 06:31 175 MCG Multivitamins (Multivitamin Tab) 1 tab DAILY PO 11/11/16 09:00 12/11/16 08:59 11/13/16 09:34 1 TAB Pantoprazole Sodium (Protonix Tab) 40 mg QAM PO 11/11/16 09:00 12/11/16 08:59 11/13/16 09:34 40 MG Hydralazine HCl (HydrALAZINE INJ) 10 mg Q4 PRN IV. 11/10/16 18:45 12/10/16 18:44 11/10/16 23:35 10 MG Miscellaneous (Iv Fluids Completed) 1 ea PRN PRN N/A 11/10/16 19:30 11/10/17 19:29 Carbamazepine (Carbatrol Extended-Release) 300 mg 5XDQ4H PO 11/10/16 23:00 12/10/16 22:59 11/14/16 06:32 300 MG Enoxaparin Sodium (Lovenox Inj) 40 mg QAM SQ 11/12/16 09:00 12/12/16 08:59 11/13/16 09:34 40 MG Impression 1. Episode November 10 where she lost her balance and hit her head creating a concussion with headache and cognitive issues. These have seemingly cleared and she is active her baseline. I've known this patient for many years and she seems back to baseline to me. She has no post concussive complaints currently. 2. Epilepsy Patient has a long-standing history of epilepsy fairly well controlled on carbamazepine. Over the years, she has had occasional breakthrough seizures. She tends to be compliant with her medication and her level on admission was 9.4. EEG showed some frontal spike activity. CT scan of the head was unremarkable. 3. Anxiety disorder This is stable. 4. Obesity, chronic She is exercising to try to lose weight and is considering a surgical procedure for weight loss. She had some low back bruising using her exercise bike last week. 5. Hypertension Plan 1. Keep carbamazepine at its current dose. 2. After consideration, I see no need to add any additional anticonvulsant medications (although I may consider Vimpat in future) seems 3. Defer treatment of hypertension to hospitalist and primary care physician. The patient is concerned that she is going to be discharged without an antihypertensive. No further specific neurologic recommendations to make at this time. I will follow this patient as an outpatient in 2-3 weeks.
[2016-11-14] MEDS: PANTOprazole SOD 40 MG TAB PO SCH (08:03)
[2016-11-14] MEDS: MULTIVITAMIN TAB PO SCH (08:03)
[2016-11-14] MEDS: ENOXAPARIN 40 MG/0.4 ML SYR SQ SCH (08:04)
[2016-11-14] MEDS ORDERED: NURSING VERBAL MED ORDER ONE (09:00)
[2016-11-14] MEDS ORDERED: AMLODIPINE BESYLATE 5 MG TAB PO ONE (09:30)
[2016-11-14] MEDS ORDERED: AMLO-114 PO (10:22)
--- NOTE | 2016-11-14 10:36 | Discharge Instructions ---
Discharge Instructions Date of Service Nov 14, 2016. Admission Reason for Admission: Post Concussion Syndrome Discharge Discharge Diagnosis / Problem: Pots concussive syndrome Discharge Goals Goal(s): Decrease discomfort, Improve function, Increase independence, Improve disease control, Diagnostic testing, Therapeutic intervention Activity Recommendations Activity Limitations: resume your previous activity Lifting Limitations: none Shower/Bathe: no limitations . Instructions / Follow-Up Instructions / Follow-Up Patient to be discharged home No limitations in activity Prescribed norvasc 10 mg PO daily, sent to pharmacy If worsening headaches, confusion or visual changes come to ER Follow up with PCP in 1-2 weeks Current Hospital Diet Patient's current hospital diet: Regular Diet Discharge Diet Recommended Diet: Regular Diet Fluid Restriction: None Pending Studies Studies pending at discharge: no Medical Emergencies . Who to Call and When: Medical Emergencies: If at any time you feel your situation is an emergency, please call 911 immediately. . Non-Emergent Contact Non-Emergency issues call your: Primary Care Provider Call Non-Emergent contact if: your pain is worsening . . "Provider Documentation" section prepared by Josh Keene. VTE Core Measure Inpt VTE Proph given/why not?: Enoxaparin (Lovenox)SQ
[2016-11-14 10:40] VITALS: BP 135/81; PULSE 74; TEMP 36.4; O2SAT 96
--- NOTE | 2016-11-14 13:43 | Discharge Summary ---
Discharge Summary Date of Service Nov 14, 2016. Discharge Summary Admission Date: Nov 12, 2016 at 13:29 Discharge Date: Nov 14, 2016 Discharge Disposition: Home Principal Diagnosis: Fall, Post concussive syndrome Consultations: Neurology Medication Reconciliation New Medications: Amlodipine (Norvasc) 10 Mg Tab 10 MG PO DAILY, #30 TAB Continued Medications: Calcium Carbonate-Vitamin D (Caltrate 600+D) 1 Chw Chw 1 TAB PO BID Carbamazepine (Carbatrol Er) 300 Mg Capcr 300 MG PO 5XD, CAP Clonazepam (Klonopin) 1 Mg Tab 1 MG PO HS, TAB Levothyroxine Sodium (Levothyroxine Sodium) 175 Mcg Tab 1 TAB PO DAILY for 30 Days, #30 TAB 5 Refills Multiple Vitamin (Multivitamin) 1 Tab Tab 1 TAB PO DAILY for 90 Days, #90 TAB 3 Refills Omeprazole (Prilosec) 20 Mg Capcr 20 MG PO DAILY, CAP Discharge Exam Review of Systems: Constitutional: No chills, No fever Respiratory: No cough, No sputum Cardiovascular: No chest pain, No orthopnea Abdomen: No diarrhea, No nausea, No pain, No vomiting Musculoskeletal: No joint pain, No muscle pain Genitourinary - Female: No dysuria, No urinary frequency, No urinary urgency Neurologic: No paralysis, No weakness Physical Exam: General Appearance: WD/WN, no apparent distress Neck: supple, no adenopathy Respiratory/Chest: lungs clear, normal breath sounds Cardiovascular: no edema, no gallop Abdomen / GI: non tender, soft Neurologic/Psychiatric: no motor/sensory deficits, alert, normal mood/affect Hospital Course Pt is a 51 yo female with hx of seizure disorder who presents with fall and postconcussive syndrome afterwards Post concussive syndrome - Was placed on observation, pt already back to baseline. Denies any headaches, blurred vision. CT head no acute bleed. B12, TSH WNL. MRI could not be completed due to claustrophobia, EEG determined seizure disorder but not subclinical seizures. Neurology consulted, no further workup indicated. Hypertension - Started on norvasc Seizure disorder - Cont carbamazepine. Level WNL. No changes in med per neurology service Hypothyroidism - Cont synthroid Anxiety - Cont klonopin Pt is FULL CODE Total Time Spent: Greater than 30 minutes This includes examination of the patient, discharge planning, medication reconciliation, and communication with other providers. Discharge Instructions Please refer to the electronic Patient Visit Report (Discharge Instructions) for additional information.
== END 2016-11-14 13:10 | disposition home or self-care (01) | DRG 103 ==
LOC: ENRESERVDT → ENRESERVTM → EDBD 11:22 → C.EDB 11:23 → C.2E 17:15 → OBSVTOIN 11-12 13:29 → C.4E 11-13 10:16
PROVIDERS: ADMIT Hospitalist; ATTEND Internal Medicine
DX: F07.81 Postconcussional syndrome (principal); Z68.43 Body mass index [BMI] 50.0-59.9, adult; E03.9 Hypothyroidism, unspecified; G40.909 Epilepsy, unspecified, not intractable, without status epilepticus; I10 Essential (primary) hypertension; F41.9 Anxiety disorder, unspecified; E66.9 Obesity, unspecified; G31.84 Mild cognitive impairment of uncertain or unknown etiology